=== PATIENT | male | born 1980 | race Caucasian/White ===

== ENCOUNTER 2024-07-24 03:16 | Emergency (ER) | payer SELFPAY ==
[~2024-07-24] VITALS: Ht 182.9 cm; Wt 95.2 kg
[2024-07-24] MEDS ORDERED: EUTHYROX125 MC1 (03:27)
[2024-07-24] MEDS ORDERED: METHOTREXATE2.510 PO (03:27)
[2024-07-24] MEDS ORDERED: DEPO-TESTO200 MG/18 IM (03:27)
[2024-07-24] MEDS ORDERED: MELO7.5 (03:27)
[2024-07-24] MEDS ORDERED: ZOLPIDEM TARTRA10 MG PO (03:27)
[2024-07-24] MEDS ORDERED: EZETIMIBE10 M6 PO (03:27)
[2024-07-24] MEDS ORDERED: FOLI1 PO (03:28)
[2024-07-24] MEDS ORDERED: Ketorolac Tromethamine 15mg Vial IV ONE (03:45)
[2024-07-24] MEDS ORDERED: Lactated Ringer's 1,000 ML IV ONE (03:45)
[2024-07-24 03:56] LABS: BASOPHILS ABSOLUTE AUTO 0.02 K/mm3 (0.00-0.23); BASOPHILS PERCENT AUTO 0 % (0-2); EOSINOPHILS ABSOLUTE AUTO 0.02 K/mm3 (0.00-0.68); EOSINOPHILS PERCENT AUTO 0 % (0-6); Hematocrit 39.4 % (37.0-53.0); Hemoglobin 13.5 g/dL (13.5-17.5); IMMATURE GRAN ABSOLUTE AUTO 0.03 K/mm3 (0.00-0.10); IMMATURE GRAN PERCENT AUTO 0 % (0-1); LYMPHOCYTES ABSOLUTE AUTO 0.67 K/mm3 (0.84-5.20); LYMPHOCYTES PERCENT AUTO 6 % (21-46); MONOCYTES ABSOLUTE AUTO 0.33 K/mm3 (0.16-1.47); MONOCYTES PERCENT AUTO 3 % (4-13); Mean Corpuscular HGB 32.9 pg (26.0-34.0); Mean Corpuscular HGB Conc 34.3 g/dL (31.5-36.5); Mean Corpuscular Volume 96 fL (80-100); Mean Platelet Volume 9.4 fL (9.1-12.4); NEUTROPHILS ABSOLUTE AUTO 9.37 K/mm3 (1.96-9.15); NEUTROPHILS PERCENT AUTO 90 % (41-73); Platelet Count 299 K/mm3 (150-400); RDW Coefficient Variation 12.7 % (11.7-14.2); RDW Standard Deviation 44.3 fL (35.1-46.3); White Blood Cell Count 10.44 K/mm3 (4.00-11.30)
[2024-07-24 04:40] LABS: Albumin, Blood 3.7 g/dL (3.4-5.0); Bilirubin, Total 0.4 mg/dL (0.1-1.0); Bun/Creatinine Ratio 9.3 (12.0-20.0); Creatinine, Blood 1.07 mg/dL (0.60-1.20); Globulin, Blood 3.7 g/dL (2.2-4.0); Magnesium, Blood 2.2 mg/dL (1.6-2.4); Potassium, Blood 4.6 mmol/L (3.5-5.5); Total Protein, Blood 7.4 g/dL (6.4-8.2)
[2024-07-24 04:41] LABS: Influenza A, PCR NEGATIVE (NEGATIVE); Influenza B, PCR NEGATIVE (NEGATIVE); Resp Syncytial Virus, PCR NEGATIVE (NEGATIVE); SARS-Cov-2 (COVID-19) PCR, MMC NEGATIVE (NEGATIVE)
[2024-07-24 05:16] VITALS: BP 142/63
== END 2024-07-24 05:17 | disposition home or self-care (01) ==
LOC: ER 03:16
PROVIDERS: Student in an Organized Health Care Education/Training Program
DX: J06.9 Acute upper respiratory infection, unspecified (principal); R07.2 Precordial pain; G47.00 Insomnia, unspecified; Z79.899 Other long term (current) drug therapy
CPT/HCPCS: 0241U; 71045; 80053; 83735; 84484; 85025; 93005; 93010; 96361; 96374; 99284-25; J1885; J7120

== ENCOUNTER → 2025-05-24 | Outpatient (CLI) | payer OTHER ==
[~2025-05-24] MED LIST: DEPO-TESTO200 MG/18 IM; EUTHYROX125 MC1; EZETIMIBE10 M6 PO; FOLI1 PO; MELO7.5; METHOTREXATE2.510 PO; ZOLPIDEM TARTRA10 MG PO
[2025-05-24 17:46] LABS: CHOL/HDL RATIO 3.6; Cholesterol 199 mg/dL (50-200); HDL Cholesterol 56 mg/dL (>39); LDL/HDL RATIO 2.2; Low Density Lipoprotein Chol 120 mg/dL (0-110); Triglycerides 113 mg/dL (30-160); Very Low Density Lipoprot Chol 22 mg/dL (6-32)
== END ==
LOC: LAB 15:30 → LAB SHORT 15:30
PROVIDERS: Family Medicine
DX: E78.2 Mixed hyperlipidemia (principal)
CPT/HCPCS: 80061; 84403